=== PATIENT | female | born 1965 ===

== ENCOUNTER 2017-11-29 05:36 | Emergency (ER) | payer OTHER ==
[2017-11-29 05:41] VITALS: BP 131/84
[2017-11-29 07:00] LABS: Bilirubin,Urine NEG (Negative); Blood,Urine SM (Negative); Color,Urine Yellow (Yellow); Mucus,Urine FEW /HPF; Protein,Urine <15 mg/dL mg/dL (Negative); Urobilinogen,Urine < 2.0 mg/dL (<2.0)
[2017-11-29 07:09] LABS: Basophils # (Auto) 0.1 K/mm3 (0.0-0.1); Basophils % (Auto) 0.8 % (0.0-1.8); Eosinophils % (Auto) 0.4 % (0.0-4.3); Hematocrit 38.7 % (30.3-42.9); Lymphocytes # (Auto) 1.7 K/mm3 (1.2-5.4); Lymphocytes % (Auto) 25.8 % (13.4-35.0); Mean Corpuscular HGB Conc 34 % (30-34); Mean Corpuscular Hemoglobin 31 pg (28-32); Mean Corpuscular Volume 92 fl (79-97); Monocytes # (Auto) 0.4 K/mm3 (0.0-0.8); Monocytes % (Auto) 6.2 % (0.0-7.3); Platelet Count 330 K/mm3 (140-440); Red Cell Distribution Width 15.5 % (13.2-15.2)
[2017-11-29 07:26] LABS: Alanine Aminotransferase 9 units/L (7-56); Albumin 4.2 g/dL (3.9-5); BUN/Creatinine Ratio 13; Blood Urea Nitrogen 9 mg/dL (7-17); Calcium 9.2 mg/dL (8.4-10.2); Hemolysis Index 6; Lipase 21 units/L (13-60)
--- NOTE | 2017-11-29 08:44 | Emergency Department Report ---
HPI - General Chief Complaint: Abdominal Pain Time Seen by Provider: 11/29/17 08:44 - HPI HPI: Patient here complaining of left flank pain and neck pain 1 month. She says worsening. She does not have a primary care doctor. Denies any injury. Denies any numbness or tingling to extremities. Denies any headache. Pain is 7 out of 10 achy. She says she might of lifted something heavy but she doesn't remember. Denies any fever or chills. Denies any urinary burning but reports urgency. Denies any urinary frequency. Denies any nausea or vomiting. Denies any abdominal pain. Patient says she does not have any medical problems. Last menstrual period was 11/01/2017. She says she's been taking [id number] pain medicine which helps a little. Better with rest and worse with movement ED Past Medical Hx - Past Medical History Previous Medical History?: No - Surgical History Past Surgical History?: No - Family History Family history: no significant - Social History Smoking Status: Current Every Day Smoker Substance Use Type: None - Medications Home Medications: Home Medications Medication Instructions Recorded Confirmed Last Taken Type Naproxen [Naprosyn TAB] 500 mg PO BID PRN #12 tablet 11/29/17 Unknown Rx Sulfamethoxazole/Trimethoprim 1 each PO BID 3 Days #6 tablet 11/29/17 Unknown Rx [Bactrim DS TAB] ED Review of Systems ROS: Stated complaint: LEFT SIDE ,NECK PAIN Other details as noted in HPI Comment: All other systems reviewed and negative Constitutional: no symptoms reported ENT: denies: ear pain, throat pain, congestion Respiratory: no symptoms reported Cardiovascular: denies: chest pain, palpitations, dyspnea on exertion, edema, syncope, paroxysmal nocturnal dyspnea Gastrointestinal: denies: abdominal pain, nausea, vomiting, diarrhea, constipation, hematemesis, melena, hematochezia Genitourinary: urgency. denies: dysuria, frequency, hematuria, discharge, abnormal menses Musculoskeletal: back pain (flank pain), myalgia (neck pain). denies: joint swelling, arthralgia Skin: denies: rash Neurological: denies: headache, weakness, numbness, paresthesias, confusion, abnormal gait, vertigo Physical Exam - Physical Exam Vital Signs: Vital Signs 11/29/17 11/29/17 05:36 06:31 Temperature 98.1 F 98.1 F Pulse Rate 94 H 91 H Respiratory 18 16 Rate Blood Pressure 131/84 131/84 O2 Sat by Pulse 97 100 Oximetry General: This is a 52-year-old female well-nourished well-developed in no acute distress Physical Exam: Head: Normocephalic, atraumatic, no abrasion, no bruising and no contusion. Eyes: Biateral pupils equal and reactive to light, bilateral EOM intact.. Bilateral conjunctival and sclera without injection, normal accommodation. No nystagmus Mouth: Mucosa dry, no pharyngeal exudate or erythema. No peritonsillar abscesses. Uvula is midline and oral airways patent. Ears: Bilateral TMs pearly hernandez Bilateral EAC without any redness swelling or drainage. No mastoid bone tenderness Nose: Bilateral nasal mucosa normal ,Maxillary and frontal sinuses non-tender to palpate. Neck: Supple, No Cervical adenopathy, full range of motion and no C-spine tenderness. No swelling or tracheal deviation normal reflexes Cardiovascular: S1, S2. Regular rate and rhythm. No murmur. Capillary refill is less then 3 seconds. Lungs: Clear to auscultate bilaterally. No rhonchi, wheezes or rales. No chest wall tenderness. No chest contusion. No bruising to chest. MSK: Strength 5/5 in all extremities. No joint deformity or crepitus. Normal inspection. Full range of motion to all extremities. No laceration, abrasion or ecchymotic area noted. Abdomen: Non-tender to palpate in all quadrants, no guarding or rebound tenderness, positive bowel sounds in all quadrants. No CVA tenderness. No hernia, bruit or mass. No rigidity or distention. Extremities: No clubbing, cyanosis or edema. +2 pulses. No neurovascular compromise Skin: Clean, dry and intact. No rash or lesions. Neurological: GCS at 15, Pt is alert and oriented 3 speech is clear . 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 Normal gait. Negative Romberg and no pronator drift. Normal Reflexes. No motor or sensory deficit Back: No vertebral tenderness, no paraspinal tenderness. Ambulates without any difficulties. Psych: Normal mood and behavior ED Course Vital Signs 11/29/17 11/29/17 05:36 06:31 Temperature 98.1 F 98.1 F Pulse Rate 94 H 91 H Respiratory 18 16 Rate Blood Pressure 131/84 131/84 O2 Sat by Pulse 97 100 Oximetry - Reevaluation(s) Reevaluation #1: 11/29/17 09:47 Patient given Toradol 30 mg IM and Zofran 8 mg ODT and emergency room. She said her pain is better. Still awaiting CT scan results. She is able to tolerate oral fluids and emergency room Reevaluation #2: 11/29/17 10:58 Pain has been relieved with Zofran and Toradol. Pt able to tolerate oral liquids in the emergency room. ED Medical Decision Making - Lab Data Result diagrams: 11/29/17 06:54 11/29/17 06:54 Lab Results 11/29/17 11/29/17 11/29/17 Range/Units 06:38 06:54 06:54 WBC 6.6 (4.5-11.0) K/mm3 RBC 4.20 (3.65-5.03) M/mm3 Hgb 13.0 (10.1-14.3) gm/dl Hct 38.7 (30.3-42.9) % MCV 92 (79-97) fl MCH 31 (28-32) pg MCHC 34 (30-34) % RDW 15.5 H (13.2-15.2) % Plt Count 330 (140-440) K/mm3 Lymph % (Auto) 25.8 (13.4-35.0) % [place] % (Auto) 6.2 (0.0-7.3) % Eos % (Auto) 0.4 (0.0-4.3) % Baso % (Auto) 0.8 (0.0-1.8) % Lymph # 1.7 (1.2-5.4) K/mm3 [place] # 0.4 (0.0-0.8) K/mm3 Eos # 0.0 (0.0-0.4) K/mm3 Baso # 0.1 (0.0-0.1) K/mm3 Seg Neutrophils % 66.8 (40.0-70.0) % Seg Neutrophils # 4.4 (1.8-7.7) K/mm3 Sodium 139 (137-145) mmol/L Potassium 4.1 (3.6-5.0) mmol/L Chloride 101.3 (98-107) mmol/L Carbon Dioxide 25 (22-30) mmol/L Anion Gap 17 mmol/L BUN 9 (7-17) mg/dL Creatinine 0.7 (0.7-1.2) mg/dL Estimated GFR > 60 ml/min BUN/Creatinine Ratio 13 % Glucose 98 (65-100) mg/dL Calcium 9.2 (8.4-10.2) mg/dL Total Bilirubin 0.50 (0.1-1.2) mg/dL AST 15 (5-40) units/L ALT 9 (7-56) units/L Alkaline Phosphatase 70 (35-129) units/L Total Protein 7.9 (6.3-8.2) g/dL Albumin 4.2 (3.9-5) g/dL Albumin/Globulin Ratio 1.1 % Lipase 21 (13-60) units/L HCG, Qual (Negative) Urine Color Yellow (Yellow) Urine Turbidity Clear (Clear) Urine pH 6.0 (5.0-7.0) Ur Specific [place] 1.020 (1.003-1.030) Urine Protein <15 mg/dl (Negative) mg/dL Urine Glucose (UA) Neg (Negative) mg/dL Urine Ketones Neg (Negative) mg/dL Urine Blood Sm (Negative) Urine Nitrite Neg (Negative) Urine Bilirubin Neg (Negative) Urine Urobilinogen < 2.0 (<2.0) mg/dL Ur Leukocyte Esterase Tr (Negative) Urine WBC (Auto) 3.0 (0.0-6.0) /HPF Urine RBC (Auto) 5.0 (0.0-6.0) /HPF U Epithel Cells (Auto) 5.0 (0-13.0) /HPF Urine Mucus Few /HPF 18 Range/Units 06:54 WBC (4.5-11.0) K/mm3 RBC (3.65-5.03) M/mm3 Hgb (10.1-14.3) gm/dl Hct (30.3-42.9) % MCV (79-97) fl MCH (28-32) pg MCHC (30-34) % RDW (13.2-15.2) % Plt Count (140-440) K/mm3 Lymph % (Auto) (13.4-35.0) % [place] % (Auto) (0.0-7.3) % Eos % (Auto) (0.0-4.3) % Baso % (Auto) (0.0-1.8) % Lymph # (1.2-5.4) K/mm3 [place] # (0.0-0.8) K/mm3 Eos # (0.0-0.4) K/mm3 Baso # (0.0-0.1) K/mm3 Seg Neutrophils % (40.0-70.0) % Seg Neutrophils # (1.8-7.7) K/mm3 Sodium (137-145) mmol/L Potassium (3.6-5.0) mmol/L Chloride (98-107) mmol/L Carbon Dioxide (22-30) mmol/L Anion Gap mmol/L BUN (7-17) mg/dL Creatinine (0.7-1.2) mg/dL Estimated GFR ml/min BUN/Creatinine Ratio % Glucose (65-100) mg/dL Calcium (8.4-10.2) mg/dL Total Bilirubin (0.1-1.2) mg/dL AST (5-40) units/L ALT (7-56) units/L Alkaline Phosphatase (35-129) units/L Total Protein (6.3-8.2) g/dL Albumin (3.9-5) g/dL Albumin/Globulin Ratio % Lipase (13-60) units/L HCG, Qual Negative (Negative) Urine Color (Yellow) Urine Turbidity (Clear) Urine pH (5.0-7.0) Ur Specific [place] (1.003-1.030) Urine Protein (Negative) mg/dL Urine Glucose (UA) (Negative) mg/dL Urine Ketones (Negative) mg/dL Urine Blood (Negative) Urine Nitrite (Negative) Urine Bilirubin (Negative) Urine Urobilinogen (<2.0) mg/dL Ur Leukocyte Esterase (Negative) Urine WBC (Auto) (0.0-6.0) /HPF Urine RBC (Auto) (0.0-6.0) /HPF U Epithel Cells (Auto) (0-13.0) /HPF Urine Mucus /HPF Urine culture pending - Radiology Data Radiology results: report reviewed CT scan of the abdomen and pelvis shows no acute inflammatory process is, moderate uterine fibroid disease. No clear explanation for left flank pain. No nephrolithiasis or hydronephrosis. Patient aorta is normal, adrenal glands normal, kidneys ureter bladder are normal, spleen normal, pancreas normal, biliary system normal, liver normal, lung bases are normal. Appendix not confidently identified but no inflammatory changes seen. Uterus is moderately enlarged with multiple small and large uterine fibroids. No adnexal cysts or mass. pelvic phleboliths, no adenopathy and no ascites`` - Medical Decision Making ED course: Patient here reports left flank pain and neck pain that's been ongoing for over month. She has no injury. Abdominal and neck exam is normal. Back exam is normal. CT scan revealed patient with multiple uterine fibroids , pelvic phlebolith. CBC stable, CMP is stable, test is negative. Urinalysis stable except he has trace leukocyte Estrace with small amount of blood. I discussed this with patient in detail. I told her I will treat her with anti-inflammatory to help with fibroids, and short dose of Bactrim DS for mild bladder infection due to urinary urgency positive blood in urine and positive leukocyte Estrace. She voiced understanding of diagnosis and treatment plan patient also does not have a primary care and I told her that she needs to go to [facility] where they have a family practice and also EDUCATION RESEARCH ANALYST. I told her to call today to schedule an appointment for management of uterine fibroids with EDUCATION RESEARCH ANALYST and primary care visit for physical exam. Discharged home a prescription for naproxen and Bactrim DS Critical care attestation.: If time is entered above; I have spent that time in minutes in the direct care of this critically ill patient, excluding procedure time. ED Disposition Clinical Impression: Acute cystitis with hematuria, Phlebolith Back pain Qualifiers: Back pain location: low back pain Chronicity: acute Back pain laterality: left Sciatica presence: without sciatica Qualified Code(s): M54.5 - Low back pain Uterine fibroid Qualifiers: Uterine leiomyoma location: unspecified location Qualified Code(s): D25.9 - Leiomyoma of uterus, unspecified Disposition: DC- TO HOME OR SELFCARE Is pt being admited?: No Does the pt Need Aspirin: No Condition: Stable Instructions: Uterine Fibroids (ED), Urinary Tract Infection in Women (ED), Back Pain (ED) Additional Instructions: Please follow up with outside Medical Center for EDUCATION RESEARCH ANALYST and primary care Take naproxen for pain as prescribed Take Bactrim DS for urinary tract infection. This medication is free at [facility] Increased your fluid intake to 2-3 L of water daily Prescriptions: Naproxen [Naprosyn TAB] 500 mg PO BID PRN #12 tablet PRN Reason: Pain Sulfamethoxazole/Trimethoprim [Bactrim DS TAB] 1 each PO BID 3 Days #6 tablet Referrals: [facility] [Outside] - 2-3 Days Forms: Work/School Release Form(ED)
[2017-11-29] MEDS ORDERED: ZOFRAN ODT PO ONE (08:46)
[2017-11-29] MEDS ORDERED: TORADOL IM ONE (08:46)
--- NOTE | 2017-11-29 10:02 | Cat Scan Report ---
CT ABDOMEN PELVIS WITHOUT CONTRAST: HISTORY: Left flank pain. COMPARISON: none. TECHNIQUE: Helical CT in 1.25mm intervals without IV contrast. Sagittal and coronal reconstructions. FINDINGS: Lung bases: Normal. Liver: Normal. Biliary system: Normal. Pancreas: Normal. Spleen: Normal. Kidneys/ureters/bladder: Normal. Adrenal glands: Normal. Aorta: Normal. Intestines: Unremarkable given no oral contrast was administered. Appendix: Not confidently identified. No inflammatory changes in the right lower quadrant. Pelvic viscera: The uterus is moderately enlarged measuring 15 x 8 x 10 cm. Multiple small and large uterine fibroids are identified. No adnexal cyst or mass. Numerous pelvic phleboliths. Ascites: None. Adenopathy: None. Musculoskeletal: Normal. IMPRESSION: No acute inflammatory process. Moderate uterine fibroid disease. No clear explanation for left flank pain. No nephrolithiasis or hydronephrosis.
== END 2017-11-29 11:26 | disposition home or self-care (01) ==
LOC: ED 05:36
DX: N30.01 Acute cystitis with hematuria (principal); I87.8 Other specified disorders of veins; D25.9 Leiomyoma of uterus, unspecified; F17.200 Nicotine dependence, unspecified, uncomplicated
CPT/HCPCS: 36415; 74176; 80053; 81001; 83690; 84703; 85025; 87086; 96372; 99284; J1885; Q0162